=== PATIENT | female | born 1940 | race Caucasian/White ===

== ENCOUNTER → 2019-01-05 | Outpatient (CLI) | payer MEDICARE, SELFPAY | PROVIDERS: Family Provider Family Medicine; PCP Family Medicine; Referring Provider Family Medicine; Visit Provider Otolaryngology | DX: H92.09 Otalgia, unspecified ear (principal); H91.92 Unspecified hearing loss, left ear; J34.2 Deviated nasal septum; J34.3 Hypertrophy of nasal turbinates; H69.83 Other specified disorders of Eustachian tube, bilateral | CPT/HCPCS: 96372; 99213 ==

== ENCOUNTER → 2019-04-28 08:57 | Outpatient (BNVA) | payer MEDICARE, SELFPAY | PROVIDERS: Family Provider Family Medicine; PCP Family Medicine; Visit Provider Otolaryngology | DX: H69.83 Other specified disorders of Eustachian tube, bilateral (principal); H91.93 Unspecified hearing loss, bilateral; J06.9 Acute upper respiratory infection, unspecified; J34.2 Deviated nasal septum; J34.3 Hypertrophy of nasal turbinates | CPT/HCPCS: 96372; 99214; J3301 ==

== ENCOUNTER 2019-09-16 15:00 | Outpatient (CLI) | payer MEDICARE, SELFPAY ==
--- NOTE | 2019-09-16 15:12 | MR_ITS ---
WS: [id number] MRI LUMBAR SPINE NONCONTRAST TECHNIQUE: Sagittal T1, T2 and STIR imaging. Axial T1 and T2 imaging. CLINICAL INFORMATION: COMPARISON: None. FINDINGS: Mild lumbar curve. No acute compression. Slight anterolisthesis L4 on L5. L1-L2: Tiny right subarticular protrusion with impingement on the traversing right L2 nerve root. Mil d right and no significant left foraminal narrowing. Mild central canal stenosis. Mild facet arthropa thy. L2-L3: Mild disc bulging with osteophytic ridging. Impingement right subarticular recess. Mild right and no significant left foraminal narrowing. Moderate facet arthropathy. L3-L4: Mild disc bulging with left to right narrowing of the thecal sac. Moderate central canal steno sis. Advanced facet arthropathy. Mild right greater than left foraminal narrowing. L4-L5: Grade 1 anterolisthesis L4 on L5. Moderate to severe central canal stenosis with impingement o n the subarticular recess bilaterally. Advanced facet arthropathy. Mild right and no significant left foraminal narrowing. L5-S1: Left eccentric disc osteophyte complex. Mild left foraminal narrowing. Advanced facet arthropa thy. Spinal canal and foramen are patent. Visualized pelvic bony structures: Normal. Paravertebral soft tissues: Normal. MR/MR lumbar spine wo con* [id number] IMPRESSION: 1. Lumbar scoliosis convex left. 2. Grade 1 anterolisthesis L4 on L5. Moderate to severe central canal stenosis L3-L4 L4-L5 with impingement subarticular recess bilaterally. This is worse L4 -5. 3. Small right subarticular protrusion L1-2 impingement on the right subarticu lar recess and traversing right L2 nerve root. Mild right foraminal narrowing. 4. Slight impingement right subarticular recess L2-3 with mild right foraminal narrowing. 5. Advanced facet arthropathy L4-L5 and L5-S1.
== END 2019-09-16 15:01 | disposition home or self-care (01) ==
PROVIDERS: Family Provider Family Medicine; PCP Family Medicine; Visit Provider Family Medicine
DX: M54.17 Radiculopathy, lumbosacral region (principal); M48.061 Spinal stenosis, lumbar region without neurogenic claudication; M47.896 Other spondylosis, lumbar region
CPT/HCPCS: 72148

== ENCOUNTER 2019-12-14 13:48 | Outpatient (CLI) | payer MEDICARE, SELFPAY ==
--- NOTE | 2019-12-14 14:15 | USCV_ITS ---
Ayesha Arteaga Age: 79 Gender: F : 1940 Exam Date: 12/14/2019 14:09 Ordering Phys: Monique Madrid Technologist: Deisi Bunn Exam Location: [facility] [place] Indication: LT CAROTID BRUIT Risk Factors: Unknown Previous Vascular Surgery: None Right Brachial BP: / Left Brachial BP: / Right Left Velocity (cm/s) Spectral Plaque Velocity (cm/s) Spectral Plaque Syst/Diast Broadening Syst/Diast Broadening 83.80/ 26.50 Prox CCA 83.30 / 19.30 61.70/ 16.50 Mid CCA 44.70 / 10.80 25.65/ 27.95 Distal CCA 38.30 / 16.60 54.40/ 13.20 Hetro Prox ICA 39.60 / 11.50 27.20/ 11.70 Mid ICA 42.10 / 14.70 44.40/ 14.10 Distal ICA 61.80 / 19.00 58.30 Hetro ECA 47.20 0.88 ICA/CCA 1.38 Antegrade Vertebral Antegrade 44.60/ 11.70 cm/s 50.90/ 18.50 cm/s Tri Subclavian Tri 81.80 65.20 FINDINGS Minimal plaques at the bifurcations bilaterally. Intimal thickening in the common carotid arteries bilaterally. Antegrade flow in the vertebral arteries bilaterally. Normal Doppler flow velocities in the external carotid arteries bilaterally CONCLUSIONS Minimal plaques at the bifurcations bilaterally. Intimal thickening in the common carotid arteries bilaterally. No significant stenosis, based on the above findings. Dr Jd Martinez MD [facility] (Electronically Signed) Final Date: 15 December 2019 16:55 S
== END 2019-12-14 13:49 | disposition home or self-care (01) ==
LOC: US 13:50
PROVIDERS: PCP Family Medicine; Visit Provider Nurse Practitioner Family
DX: R09.89 Other specified symptoms and signs involving the circulatory and respiratory systems (principal)
CPT/HCPCS: 93880

== ENCOUNTER 2019-12-22 12:28 | Outpatient (CLI) | payer MEDICARE, SELFPAY ==
--- NOTE | 2019-12-22 12:43 | CT_ITS ---
WS: [id number] Exam: CT neck w con* [id number] Date/Time of Exam: 12/22/2019 1:00 PM Reason For Exam: MASS OF RIGHT SIDE OF NECK DLP: 2295.[address] scans at [facility] use at least one of these dose optimization techniques: automat ed exposure control; mA and/or kV adjustment per patient size (includes targeted exams where dose is matched to clinical indication); or iterative reconstruction. The neck is evaluated in the axial plane with sagittal and coronal reformatted images. Intravenous co ntrast was administered for the exam. There is no sign of neck mass or significant cervical lymphadenopathy. The airway is patent. The subm andibular glands and parotid glands are symmetrical side to side. No mass is noted in the region of t he tongue base. The bilateral common carotid arteries and extracranial internal carotid arteries are patent as visualized. Visualized upper lung zones are clear. Several tiny low attenuation densities i n the bilateral thyroid lobes. No destructive bone lesions. Degenerative changes in the cervical spin e. CT/CT neck w con* [id number] IMPRESSION: 1. No sign of neck mass or significant cervical lymphadenopathy. 2. Other minor findings as above.
[2019-12-22] MEDS: iohexol 300 mg/mL 100 mL Btl IV (13:22)
== END 2019-12-22 12:29 | disposition home or self-care (01) ==
LOC: RADWPI 12:32
PROVIDERS: PCP Family Medicine; Visit Provider Family Medicine
DX: R22.1 Localized swelling, mass and lump, neck (principal)
CPT/HCPCS: 70491; Q9967

== ENCOUNTER 2020-06-18 12:33 | Outpatient (CLI) | payer MEDICARE, SELFPAY ==
--- NOTE | 2020-06-18 12:52 | MR_ITS ---
WS: [id number] MRI LUMBAR SPINE NONCONTRAST HISTORY: LUMBAR SPINE Instability; sciatica COMPARISON: 09/16/2019 TECHNIQUE: Sagittal and axial multisequence imaging is submitted. Disc osteophyte encroachment causing mild cervical stenosis at C3-4 and C4-5. Mild increase in the th oracic kyphosis. Mild LEFT curvature lumbar spine with straightening of the normal lordosis. 4 mm retrolisthesis of L2 and L3. 7 mm anterolisthesis of L4. Conus terminates normally at L1. L1-L2: Moderate size RIGHT paracentral and subarticular recess disc protrusion similar to the prior s tudy with mild subarticular recess narrowing and foraminal narrowing on the RIGHT. L2-L3: Diffuse annular disc bulging and osteophytic ridging. Bilateral facet joint arthritis, RIGHT g reater than LEFT. Bone and disc impingement into the RIGHT subarticular recess and moderate RIGHT for aminal stenosis and mild on the LEFT. L3-L4: Diffuse asymmetric disc bulging and osteophytic ridging with marked ligamentum flavum disease and facet arthritis. There is moderate central stenosis. Encroachment into the LEFT lateral recess an d bilateral subarticular recesses and foramen. Moderate to severe bilateral foraminal stenosis. L4-L5: Diffuse osteophytic ridging with ligamentum flavum disease and facet arthritis. Moderate centr al, bilateral subarticular recess and foraminal stenosis. Foraminal stenosis slightly greater on the LEFT. L5-S1: Diffuse asymmetric disc bulging with facet and ligamentum flavum hypertrophy. Mild LEFT forami nal stenosis. MR/MR lumbar spine wo con* [id number] IMPRESSION: 1. LEFT curvature lumbar spine with multilevel areas of significant degenerati ve facet disease and disc disease. 2. Grade 1 anterolisthesis of L4. 3. Moderate central, bilateral subarticular recess and foraminal stenosis, LEF T greater than RIGHT at L4-5. 4. Moderate central stenosis with LEFT lateral recess, bilateral subarticular recess and foraminal stenosis at L3-4. Similar to the prior study with only mil d progression. 5. Moderate RIGHT foraminal stenosis at L2-3. 6. Mild RIGHT subarticular recess and foraminal narrowing at L1-2 due to disc protrusion, unchanged.
== END 2020-06-18 12:34 | disposition home or self-care (01) ==
LOC: RADSHAW 12:35
PROVIDERS: PCP Family Medicine; Visit Provider Family Medicine
DX: M53.2X6 Spinal instabilities, lumbar region (principal); M54.32 Sciatica, left side; M54.31 Sciatica, right side; M51.26 Other intervertebral disc displacement, lumbar region; M48.061 Spinal stenosis, lumbar region without neurogenic claudication; M51.36 Other intervertebral disc degeneration, lumbar region
CPT/HCPCS: 72148

== ENCOUNTER → 2021-01-14 13:41 | Outpatient (BNVA) | payer MEDICARE, SELFPAY | PROVIDERS: PCP Family Medicine; Visit Provider Obstetrics & Gynecology | DX: R10.2 Pelvic and perineal pain (principal); Z85.3 Personal history of malignant neoplasm of breast | CPT/HCPCS: 76830 ==

== ENCOUNTER 2021-02-11 10:11 | Outpatient (CLI) | payer MEDICARE, SELFPAY ==
--- NOTE | 2021-02-11 10:30 | MM_ITS ---
WS: [id number] BILATERAL DIGITAL DIAGNOSTIC MAMMOGRAM MAMMOGRAPHY WITH CAD CLINICAL INFORMATION: Z85.3 - Personal history of malignant neoplasm of breast COMPARISON: None available TECHNIQUE: Bilateral CC, MLO, and ML views. FINDINGS: Scattered fibroglandular densities bilaterally. Evidence of prior lumpectomy left mid breast with ass ociated surgical clips and calcifications. Associated parenchymal fibrosis at the lumpectomy site. Indeterminate clustered calcifications along the inferior and anterior margin of the lumpectomy site LEFT breast. Recommend spot compression magnification views of these calcifications. Numerous indeterminate clustered calcifications RIGHT breast. Recommend spot compression magnificatio n views of these calcifications. MM/[place] [id number] IMPRESSION: BI-RADS: 0-Incomplete: Need additional imaging evaluation FOLLOW UP: Need Additional Imaging RECOMMEND SPOT COMPRESSION MAGNIFICATION VIEWS BILATERAL BREAST OF THE NUMEROUS CLUSTERED CALCIFICATIONS
== END 2021-02-11 10:12 | disposition home or self-care (01) ==
LOC: RADSHAW 10:16
PROVIDERS: PCP Family Medicine; Visit Provider Obstetrics & Gynecology
DX: Z85.3 Personal history of malignant neoplasm of breast (principal)
CPT/HCPCS: 77066

== ENCOUNTER → 2021-02-13 09:13 | Outpatient (BNVA) | payer MEDICARE, SELFPAY | PROVIDERS: PCP Family Medicine; Visit Provider Urology | DX: N32.9 Bladder disorder, unspecified (principal); N30.20 Other chronic cystitis without hematuria; R33.9 Retention of urine, unspecified | CPT/HCPCS: 81003; 87077; 87086; 87184 ==

== ENCOUNTER 2021-03-12 08:40 | Outpatient (CLI) | payer MEDICARE, SELFPAY ==
--- NOTE | 2021-03-12 09:00 | MM_ITS ---
WS: [id number] BILATERAL DIGITAL DIAGNOSTIC MAMMOGRAM MAMMOGRAPHY WITH CAD CLINICAL INFORMATION: R92.8 - Other abnormal and inconclusive findings on diagn... COMPARISON: February 11, 2021 TECHNIQUE: Bilateral CC, MLO, and ML views. FINDINGS: Scattered fibroglandular densities bilaterally. Prior postoperative changes lumpectomy left mid breas t. Associated surgical clips and calcifications. Associated parenchymal fibrosis at the lumpectomy si te. LEFT: Clustered punctate calcifications about the lumpectomy site. Without the benefit of prior comparison studies these are technically indeterminant and recommend further evaluation with stereotactic guided biopsy. Additional coarse benign-appearing dystrophic calcifications within the lumpectomy defect centrally. RIGHT: Numerous clusters of amorphous calcifications within the right breast. These are probably benign and recommend 6 month follow-up to confirm stability considering no comparisons. MM/[place] [id number] IMPRESSION: Indeterminate clustered punctate calcifications LEFT breast about t he lumpectomy site. Recommend further evaluation with stereotactic biopsy. BI-RADS: 4-Suspicious Finding-Biopsy Should Be Considered FOLLOW UP: Stereotactic Biopsy Recommended In addition, recommend 6 month follow-up RIGHT breast calcifications with diagn ostic mammography and spot magnification views.
== END 2021-03-12 08:41 | disposition home or self-care (01) ==
LOC: RADSHAW 08:45
PROVIDERS: PCP Family Medicine; Visit Provider Obstetrics & Gynecology
DX: R92.8 Other abnormal and inconclusive findings on diagnostic imaging of breast (principal); R92.1 Mammographic calcification found on diagnostic imaging of breast
CPT/HCPCS: 77066

== ENCOUNTER → 2021-04-26 12:53 | Outpatient (BNVA) | payer MEDICARE, SELFPAY | PROVIDERS: PCP Family Medicine; Visit Provider Urology | DX: N30.80 Other cystitis without hematuria (principal) | CPT/HCPCS: 81003; 87077; 87086; 87184 ==

== ENCOUNTER → 2021-05-24 15:01 | Outpatient (BNVA) | payer MEDICARE, SELFPAY | PROVIDERS: PCP Family Medicine; Visit Provider Urology | DX: N30.80 Other cystitis without hematuria (principal); N39.41 Urge incontinence; R35.89 Other polyuria | CPT/HCPCS: 81003 ==

== ENCOUNTER → 2021-08-29 09:52 | Outpatient (BNVA) | payer MEDICARE, SELFPAY | PROVIDERS: PCP Family Medicine; Visit Provider Urology | DX: N30.80 Other cystitis without hematuria (principal) | CPT/HCPCS: 81003; 87077; 87086; 87186; 99213 ==

== ENCOUNTER → 2021-10-17 08:38 | Outpatient (BNVA) | payer MEDICARE, SELFPAY | PROVIDERS: PCP Family Medicine; Visit Provider Urology | DX: R35.89 Other polyuria (principal); N39.41 Urge incontinence; N30.80 Other cystitis without hematuria | CPT/HCPCS: 51798; 81003; 99213 ==

== ENCOUNTER → 2021-12-03 14:28 | Outpatient (BNVA) | payer MEDICARE, SELFPAY | PROVIDERS: PCP Family Medicine; Visit Provider Student in an Organized Health Care Education/Training Program | DX: M17.12 Unilateral primary osteoarthritis, left knee (principal); M71.22 Synovial cyst of popliteal space [Baker], left knee | CPT/HCPCS: 20610; 73560; 73565; 99204; J3301 ==

== ENCOUNTER → 2021-12-09 13:35 | Outpatient (BNVA) | payer MEDICARE, SELFPAY | PROVIDERS: PCP Family Medicine; Visit Provider Internal Medicine Cardiovascular Disease | DX: I47.1 Supraventricular tachycardia (principal); I10 Essential (primary) hypertension | CPT/HCPCS: 93005; 99214 ==

== ENCOUNTER → 2021-12-13 10:21 | Outpatient (BNVA) | payer MEDICARE, SELFPAY | PROVIDERS: PCP Family Medicine; Visit Provider Urology | DX: N39.41 Urge incontinence (principal); N30.80 Other cystitis without hematuria | CPT/HCPCS: 81003; 99213 ==

== ENCOUNTER → 2022-01-07 10:51 | Outpatient (BNVA) | payer MEDICARE, SELFPAY | PROVIDERS: PCP Family Medicine; Visit Provider Student in an Organized Health Care Education/Training Program | DX: M17.12 Unilateral primary osteoarthritis, left knee (principal) | CPT/HCPCS: 99213 ==

== ENCOUNTER → 2022-01-24 06:55 | Outpatient (BNVA) | payer MEDICARE, SELFPAY | PROVIDERS: PCP Family Medicine; Visit Provider Student in an Organized Health Care Education/Training Program | DX: M17.12 Unilateral primary osteoarthritis, left knee (principal) | CPT/HCPCS: 99214 ==

== ENCOUNTER → 2022-02-11 08:51 | Outpatient (BNVA) | payer MEDICARE, SELFPAY | PROVIDERS: PCP Family Medicine; Visit Provider Student in an Organized Health Care Education/Training Program | DX: M17.12 Unilateral primary osteoarthritis, left knee (principal) | CPT/HCPCS: 99214 ==

== ENCOUNTER → 2022-03-20 08:04 | Outpatient (BNVA) | payer MEDICARE, SELFPAY | PROVIDERS: PCP Family Medicine; Visit Provider Student in an Organized Health Care Education/Training Program | DX: M17.12 Unilateral primary osteoarthritis, left knee (principal) | CPT/HCPCS: 99213 ==

== ENCOUNTER → 2022-04-17 10:22 | Outpatient (BNVA) | payer MEDICARE, SELFPAY | PROVIDERS: PCP Family Medicine; Visit Provider Urology | DX: N30.80 Other cystitis without hematuria (principal) | CPT/HCPCS: 81003; 99213 ==

== ENCOUNTER → 2022-06-17 13:54 | Outpatient (BNVA) | payer MEDICARE, SELFPAY | PROVIDERS: PCP Family Medicine; Visit Provider Internal Medicine Cardiovascular Disease | DX: I47.1 Supraventricular tachycardia (principal); I10 Essential (primary) hypertension | CPT/HCPCS: 99213 ==

== ENCOUNTER → 2022-07-31 12:47 | Outpatient (BNVA) | payer MEDICARE, SELFPAY | PROVIDERS: PCP Family Medicine; Visit Provider Family Medicine | DX: N30.80 Other cystitis without hematuria (principal); I47.1 Supraventricular tachycardia; R53.83 Other fatigue; I10 Essential (primary) hypertension; N39.41 Urge incontinence; Z76.89 Persons encountering health services in other specified circumstances; Z79.899 Other long term (current) drug therapy | CPT/HCPCS: 80053; 82306; 82607; 83735; 84443; 85025 ==

== ENCOUNTER → 2022-08-12 09:39 | Outpatient (BNVA) | payer MEDICARE, SELFPAY | PROVIDERS: PCP Family Medicine; Visit Provider Urology | DX: N30.80 Other cystitis without hematuria (principal); R33.9 Retention of urine, unspecified | CPT/HCPCS: 81003; 87077; 87086; 87186; 99213 ==

== ENCOUNTER 2022-08-13 10:23 | Outpatient (CLI) | payer MEDICARE, SELFPAY ==
--- NOTE | 2022-08-13 10:36 | MM_ITS ---
WS: [id number] DIAGNOSTIC BILATERAL DIGITAL BREAST TOMOSYNTHESIS MAMMOGRAPHY WITH CAD HISTORY: ANNUAL - HX BR CA COMPARISON: 03/12/2021, 02/11/2021 and 02/08/2020 TECHNIQUE: Bilateral craniocaudad, mediolateral oblique, and mediolateral views are submitted with to mosynthesis and SM. Computer aided detection utilized. Breast composition: There are scattered areas of fibroglandular density. Status post lumpectomy site middle LEFT breast at 12:00. Increasing dystrophic calcifications at the surgical site. No new or destiny picious calcifications. Stable calcifications in the RIGHT breast. MM/[place] [id number] IMPRESSION: BI-RADS: 2-Benign FOLLOW UP: 1 Year Follow-up
== END 2022-08-13 10:24 | disposition home or self-care (01) ==
PROVIDERS: PCP Family Medicine; Visit Provider Family Medicine
DX: Z12.39 Encounter for other screening for malignant neoplasm of breast (principal); Z85.3 Personal history of malignant neoplasm of breast
CPT/HCPCS: 77062; 80053; 82306; 82607; 83735; 84443; 85025; G0279

== ENCOUNTER → 2022-10-31 12:56 | Outpatient (BNVA) | payer MEDICARE, SELFPAY | PROVIDERS: PCP Family Medicine; Visit Provider Family Medicine | DX: R30.0 Dysuria (principal); N30.80 Other cystitis without hematuria; R29.898 Other symptoms and signs involving the musculoskeletal system | CPT/HCPCS: 81000 ==

== ENCOUNTER → 2023-03-12 12:23 | Outpatient (BNVA) | payer MEDICARE, SELFPAY | PROVIDERS: PCP Family Medicine; Visit Provider Family Medicine | DX: R10.31 Right lower quadrant pain (principal); M70.61 Trochanteric bursitis, right hip | CPT/HCPCS: 80053; 85025 ==

== ENCOUNTER 2023-04-15 06:47 | Outpatient (CLI) | payer MEDICARE, SELFPAY ==
--- NOTE | 2023-04-15 08:00 | CT_ITS ---
WS: [id number] CT ABDOMEN PELVIS TECHNIQUE: Contrast-enhanced CT of the abdomen and pelvis with coronal and sagittal reformatted image s. CLINICAL INFORMATION: rlq pain COMPARISON: CT 2019 DLP: 470.[address] scans at [facility] use at least one of these dose optimization techniques: automated e xposure control; mA and/or kV adjustment per patient size (includes targeted exams where dose is matc hed to clinical indication); or iterative reconstruction. FINDINGS: Diffuse fatty infiltration of the liver. Multiple hepatic cysts some of which have increased in size compared to 2019. Largest hepatic cysts in the LEFT hepatic lobe measuring 3.1 cm and RIGHT hepatic l obe measuring 3.1 cm. Normal portal vein and splenic vein. Splenic granulomas. Normal GE junction. Bi basilar atelectasis. Normal caliber abdominal aorta. Celiac and SMA are patent. Adrenal glands are no rmal. No hydronephrosis in either kidney. Small LEFT renal cyst. Normal pancreatic parenchymal enhancement. Small fat-containing umbilical hernia. Thoracolumbar scoli osis. Grade 1 anterolisthesis L4 and L5 unchanged. Normal appendix in the RIGHT lower quadrant. Mild transverse colon and RIGHT colon constipation. IMPRESSION: 1. Simple bilateral hepatic cysts some of which have increased in size compared to 2019. 2. Small LEFT renal cyst measuring 1.0 cm. No hydronephrosis in either kidney. 3. Bibasilar atelectasis. 4. Normal appendix in the RIGHT lower quadrant. 5. Stable grade 1 anterolisthesis L4 on L5. 6. No other acute findings.
[2023-04-15] MEDS: iohexol 350 mg/mL 500 mL Btl (per mL) PO (08:25)
[2023-04-15] MEDS: iohexol 350 mg/mL 100 mL Btl IV (08:25)
== END 2023-04-15 06:48 | disposition home or self-care (01) ==
LOC: RAD 06:48
PROVIDERS: PCP Family Medicine; Visit Provider Family Medicine
DX: R10.31 Right lower quadrant pain (principal); K76.89 Other specified diseases of liver; N28.1 Cyst of kidney, acquired
CPT/HCPCS: 74177; Q9967

== ENCOUNTER → 2023-06-16 14:06 | Outpatient (BNVA) | payer MEDICARE, SELFPAY | PROVIDERS: PCP Family Medicine; Visit Provider Internal Medicine Cardiovascular Disease | DX: I47.10 Supraventricular tachycardia, unspecified (principal); I10 Essential (primary) hypertension; F41.9 Anxiety disorder, unspecified | CPT/HCPCS: 99213 ==

== ENCOUNTER 2023-08-19 09:22 | Outpatient (CLI) | payer MEDICARE, SELFPAY ==
--- NOTE | 2023-08-19 10:00 | MM_ITS ---
WS: [id number] DIAGNOSTIC BILATERAL DIGITAL BREAST TOMOSYNTHESIS MAMMOGRAPHY WITH CAD HISTORY: Hx of Breast Cancer COMPARISON: 08/13/2022, 02/11/2021 and 02/08/2020 TECHNIQUE: Bilateral craniocaudad, mediolateral oblique, and mediolateral views are submitted with to mosynthesis and SM. Computer aided detection utilized. Breast composition: The breasts are heterogeneously dense, which may obscure small masses. Status pos t lumpectomy with scarring central superior LEFT breast. Dystrophic calcification developing associat ed with the lumpectomy clips. There is mild but stable architectural distortion. Bilateral benign abi ast calcifications. No new mass. MM/[place] [id number] IMPRESSION: BI-RADS: 2-Benign FOLLOW UP: 1 Year Follow-up
== END 2023-08-19 09:23 | disposition home or self-care (01) ==
LOC: RAD 09:23
PROVIDERS: PCP Family Medicine; Visit Provider Family Medicine
DX: Z85.3 Personal history of malignant neoplasm of breast (principal)
CPT/HCPCS: 77062; G0279

== ENCOUNTER → 2023-12-15 14:41 | Outpatient (BNVA) | payer MEDICARE, SELFPAY | PROVIDERS: PCP Family Medicine; Visit Provider Family Medicine | DX: I10 Essential (primary) hypertension (principal); R53.83 Other fatigue; N30.80 Other cystitis without hematuria | CPT/HCPCS: 80053; 81000; 82306; 82607; 83735; 84443; 85025; 87086 ==

== ENCOUNTER 2023-12-27 09:08 | Emergency (ER) | payer MEDICARE, SELFPAY ==
[2023-12-27 09:30] VITALS: BP 175/91; PULSE 59; O2SAT 97; BMI 25.0
--- NOTE | 2023-12-27 09:33 | CTR_ITS ---
PROCEDURE INFORMATION: Exam: CT Lumbar Spine Without Contrast Exam date and time: 12/27/2023 11:01 AM Age: 83 years old Clinical indication: Low back pain TECHNIQUE: Imaging protocol: Computed tomography of the lumbar spine without contrast. Radiation optimization: All CT scans at this facility use at least one of these dose optimization techniques: automated exposure control; mA and/or kV adjustment per patient size (includes targeted exams where dose is matched to clinical indication); or iterative reconstruction. COMPARISON: MR lumbar spine wo con* [id number] 06/18/2020 1:07 PM RADIATION DOSE METRICS: Total DLP (mGy-cm): 617.63 FINDINGS: Bones/joints: Demineralization of the visualized bones. Curvature of the lumbar spine convex to the left. Mild degenerative disease of bilateral sacroiliac joints. Bilateral L4-L5 facet joint arthropathy with mild anterolisthesis of L4 over L5. Bilateral L3-L4 facet joint arthropathy with mild retrolisthesis L3 over L4. No compression deformity. No acute fracture. L1-L2: Posterior osteophyte disc complex with bilateral facet joint arthropathy causing mild bony canal stenosis and moderate narrowing of the right neural foramen. L2-L3: Posterior osteophyte disc complexes bilateral facet joint arthropathy causing mild bony canal stenosis and moderate narrowing of the right neural foramen. L3-L4: Posterior osteophyte disc complex with bilateral facet joint arthropathy and ligamentum flavum hypertrophy causing severe bony canal stenosis and severe narrowing of bilateral neural foramina. L4-L5: Posterior osteophyte disc complex with bilateral facet joint arthropathy and ligamentum flavum hypertrophy causing severe thecal sac compression and moderate narrowing of bilateral neural foramina. L5-S1: Bilateral facet joint arthropathy. No significant thecal sac compression or neural foraminal narrowing. Liver: Calcified granulomas in the liver. Spleen: Calcified granulomas in the spleen. Vasculature: Vascular calcifications. Soft tissues: Unremarkable. CT/CT lumbar spine wo con* [id number] IMPRESSION: Multilevel degenerative disease of the lumbar spine, most pronounced at L4-L5 with severe thecal sac compression.
[2023-12-27] MEDS: ondansetron 2 mg/ML SDV 2 mL 4 MG IVP (09:50)
[2023-12-27 09:51] LABS: Basophils % 0.4 %; Eosinophils % 0.2 %; Hematocrit 43.3 % (36-47); Lymphocytes # 1.5 10^3/uL (0.8-4.8); Lymphocytes % 16.6 %; Mean Corpuscular HGB Conc 32.8 g/dL (30-55); Mean Corpuscular Hemoglobin 29.6 pg (27-33); Mean Corpuscular Volume 90.4 fl (85-98); Mean Platelet Volume 9.4 fL (7.4-10.4); Monocytes # 0.7 10^3/uL (0.2-0.9); Monocytes % 7.8 %; Neutrophils # 6.72 10^3/uL (1.8-7.7); Neutrophils % 74.7 %; Nucleated Red Blood Cells % 0 %; Platelet Count 347 10^3/cmm (157-399); Red Blood Count 4.79 10^6/uL (3.85-5.65); Red Cell Distribution Width 12.7 % (12.1-15.1)
[2023-12-27 09:53] VITALS: RESP 16
[2023-12-27] MEDS: morphine 4 mg/mL SDV 1 mL IVP (09:53)
[2023-12-27] MEDS: dexamethasone 10 mg/mL INJ IVP (09:55)
[2023-12-27] MEDS: methocarbamol 750 mg Tablet 1500 MG PO (09:57)
--- NOTE | 2023-12-27 10:11 | W.ED.BACK ---
HPI - Back Pain/Injury General: Chief Complaint: Back Pain/Injury Stated Complaint: sever pain left side of back Time Seen by Provider: 12/27/23 09:19 Source: patient Mode of arrival: ambulatory Limitations: no limitations History of Present Illness: 83-year-old female states she has been having increasing back pain over the last month states it is left lower back she has had some radiation down her left leg states she seen her PCP for this has been on steroids has had no improvement she denies any bowel or bladder incontinence denies any saddle anesthesia states her pain currently is a 4 out of 10. Associated symptoms: Deny abdominal pain, chills, fever(s), nausea or vomiting Related Data Home Medications Medication Instructions Recorded Confirmed polyethylene glycol 3350 17 17 gm PO DAILY PRN Constipation 10/12/19 12/27/23 gram/dose oral powder (Miralax) acetaminophen 500 mg tablet 500 mg PO Q6H PRN Pain 12/27/23 12/27/23 amlodipine 2.5 mg tablet 2.5 mg PO DAILY 12/27/23 12/27/23 metoprolol tartrate 25 mg tablet 25 mg PO BID 12/27/23 12/27/23 Previous Rx's Medication Instructions Recorded celecoxib 50 mg capsule (Celebrex) 50 mg PO BID #60 caps 12/15/23 methylprednisolone 4 mg tablets in See Rx Instructions PO PER PKG DIR 12/22/23 a dose pack (Medrol (Stephon)) #21 ea hydrocodone 5 mg-acetaminophen 325 1 tab PO Q6H PRN pain #14 tabs 12/27/23 mg tablet methocarbamol 750 mg tablet 750 mg PO Q6H PRN spasms #20 tabs 12/27/23 Allergies Allergy/AdvReac Type Severity Reaction Status Date / Time simvastatin AdvReac Unknown muscle Verified 12/22/23 14:18 aches tamoxifen AdvReac Unknown superficial Verified 12/22/23 14:18 clot in legs Review of Systems Const: Denies: fever(s), chills, body aches or change in appetite ENMT: Denies: throat pain or dental pain Card: Denies: chest pain Resp: Denies: dyspnea GI: Denies: abdominal pain, nausea, vomiting or diarrhea Musc: Reports: back pain; Denies: neck pain Skin/Breast: Denies: rash Neuro: Denies: headache(s) PFSH ED PFSH: Medical History 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 She also underwent radiation but no chemotherapy secondary to complications. She follows up with her oncologist in [place] who cleared her in 2019 to return to routine care. Essential hypertension SVT (supraventricular tachycardia) Surgical History History of lumpectomy of left breast History of bunionectomy of left great toe H/O: hysterectomy 02/09/2017--->patient underwent a vaginal hysterectomy, sacro-spinous ligament fixation, anterior and posterior repair, perineorrhaphy, right salpingectomy. Surgery was performed by Dr. Mahmood in [facility] in [place]. --He notes that there was a 6 cm tubal cyst on the right side and that is why the right tube was removed. The ovaries and left tube were within normal limits but could not be reached and were not removed. -Operative reports have been received and scanned into all scripts S/P dilatation and curettage 6 weeks after the of her first child for abnormal bleeding S/P hammer toe correction 2002-left foot S/P cataract surgery 2019-bilateral Family History Father , at age 67 CAD (coronary artery disease) Hyperlipidemia Sister Thyroid disease Uterine cancer diagnosed at age 74 Breast cancer diagnosed at age 67 Stroke Family/Other Breast cancer Niece, diagnosed at age 40 Brother Hyperlipidemia Mother , at 76 Breast cancer diagnosed at age 63 Cancer Other H/O breast surgery History of breast cancer Denies family history of Colon cancer Ovarian cancer Diabetes Clotting disorder Dementia Chronic kidney disease (CKD) Suicide Anesthesia complication Bleeding disorder Lung disease Hypertension Social History Smoking and tobacco/nicotine status: never used tobacco/nicotine Alcohol intake: never Substance/Drug Use: never Caregiver/support person: Yes Household members: spouse Marital status: Number of children: 3 Current occupational status: retired Special janneth needs: No Agree to transfusion: Yes Physical Exam Const: COMMON NORMALS: no acute distress, patient oriented x3 and healthy appearing HENMT: COMMON NORMALS: normocephalic and atraumatic HEAD & SCALP: normocephalic and atraumatic Eye: COMMON NORMALS: conjunctivae normal CONJUNCTIVA: Yes conjunctivae normal Neck/C-Spine: COMMON NORMALS: full ROM and supple Chest: COMMONS NORMALS: normal inspection of the chest Resp: COMMON NORMALS: normal respiratory effort Cardio: COMMON NORMALS: regular rate, regular rhythm and No murmurs present (Cardio) RATE: regular rate RHYTHM: regular rhythm Back/Pelvis: OTHER: Left lower lumbar tenderness no midline tenderness no saddle anesthesia Extremity: COMMON NORMALS: normal to inspection and full ROM Neuro: COMMON NORMALS: patient oriented x3, moves all extremities and no focal motor deficits Psych: COMMON NORMALS: mental status grossly normal, Normal thought process present and cooperative THOUGHT PROCESS: Normal thought process present Skin: COMMON NORMALS: no rashes or lesions noted and no wounds GENERAL SKIN EXAM: no rashes or lesions noted Course Vital Signs: Vital signs: Vital Signs Pulse Rate 59 L 12/27/23 09:30 Respiratory Rate 16 12/27/23 09:53 Blood Pressure 175/91 12/27/23 09:30 Pulse Oximetry 97 12/27/23 09:30 MDM - Back Pain/Injury Medical Decision Making Patient presents here with back pain and she has no signs of cord compression or epidural abscess her pain is improved here we will place her on pain meds we will get her follow-up with Dr. Carroll she is return if worsening. Medical Records I reviewed the patient's medical records. Labs I reviewed the patient's lab results. 12/27/23 09:44 12/27/23 09:44 Radiology Impressions Lumbar Spine CT 12/27/23 09:33 IMPRESSION: Multilevel degenerative disease of the lumbar spine, most pronounced at L4-L5 with severe thecal sac compression. Laboratory Results WBC 9.00 10^3/uL (3.29-11.43) 12/27/23 09:44 RBC 4.79 10^6/uL (3.85-5.65) 12/27/23 09:44 Hgb 14.20 g/dL (11.27-16.99) 12/27/23 09:44 Hct 43.3 % (36-47) 12/27/23 09:44 MCV 90.4 fl (85-98) 12/27/23 09:44 MCH 29.6 pg (27-33) 12/27/23 09:44 MCHC 32.8 g/dL (30-55) 12/27/23 09:44 RDW 12.7 % (12.1-15.1) 12/27/23 09:44 Plt Count 347 10^3/cmm (157-399) 12/27/23 09:44 MPV 9.4 fL (7.4-10.4) 12/27/23 09:44 Neut % (Auto) 74.7 % 12/27/23 09:44 Lymph % (Auto) 16.6 % 12/27/23 09:44 Cobb % (Auto) 7.8 % 12/27/23 09:44 Eos % (Auto) 0.2 % 12/27/23 09:44 Baso % (Auto) 0.4 % 12/27/23 09:44 Neut # (Auto) 6.72 10^3/uL (1.8-7.7) 12/27/23 09:44 Lymph # (Auto) 1.5 10^3/uL (0.8-4.8) 12/27/23 09:44 Cobb # (Auto) 0.7 10^3/uL (0.2-0.9) 12/27/23 09:44 Eos # (Auto) 0.0 10^3/uL (0.0-0.8) 12/27/23 09:44 Baso # (Auto) 0.0 10^3/uL (0.0-0.1) 12/27/23 09:44 Nucleated RBC % (auto) 0 % 12/27/23 09:44 Nucleated RBCs # 0.0 /100WBC 12/27/23 09:44 Sodium 137 mmol/L (136-145) 12/27/23 09:44 Potassium 4.3 mmol/L (3.5-5.1) 12/27/23 09:44 Chloride 100 mmol/L (98-107) 12/27/23 09:44 Carbon Dioxide 24 mmol/L (22-29) 12/27/23 09:44 Anion Gap 17.3 (5-19) 12/27/23 09:44 BUN 17 mg/dL (8-23) 12/27/23 09:44 Creatinine 0.8 mg/dL (0.5-0.9) 12/27/23 09:44 GFR Calculation Not Reportable 12/27/23 09:44 Glucose 100 mg/dL (65-115) 12/27/23 09:44 Calculated Osmolality 286 mOsm/kg (285-295) 12/27/23 09:44 Calcium 8.7 mg/dL (8.5-10.5) 12/27/23 09:44 Total Bilirubin 0.6 mg/dL (0.15-1.2) 12/27/23 09:44 AST 25 U/L (0-32) 12/27/23 09:44 ALT 23 U/L (0-33) 12/27/23 09:44 Alkaline Phosphatase 65 U/L (35-105) 12/27/23 09:44 Total Protein 6.9 g/dL (6.6-8.7) 12/27/23 09:44 Albumin 4.3 g/dL (3.5-5.2) 12/27/23 09:44 Globulin 2.6 g/dL (1.3-4.6) 12/27/23 09:44 Urine Color Yellow (Yellow) 12/27/23 10:45 Urine Appearance Clear (CLEAR) 12/27/23 10:45 Urine pH 7.0 (5-7) 12/27/23 10:45 Ur Specific [place] 1.005 (1.005-1.030) 12/27/23 10:45 Urine Protein Negative (Negative) 12/27/23 10:45 Urine Glucose (UA) Negative (Normal) 12/27/23 10:45 Urine Ketones Negative (Negative) 12/27/23 10:45 Urine Blood Negative (Negative) 12/27/23 10:45 Urine Nitrate Negative (Negative) 12/27/23 10:45 Urine Bilirubin Negative (Negative) 12/27/23 10:45 Urine Urobilinogen 0.2 mg/dL (Negative) 12/27/23 10:45 Ur Leukocyte Esterase Negative (Negative) 12/27/23 10:45 Urine RBC 0-2 /hpf (0-2) 12/27/23 10:45 Urine WBC 0-5 /hpf (0-5) 12/27/23 10:45 Ur Squamous Epith Cells 0-5 /hpf (0-5) 12/27/23 10:45 Amorphous Sediment Not Reportable 12/27/23 10:45 Urine Bacteria None seen /hpf (NONE) 12/27/23 10:45 Hyaline Casts 0-4 /lpf H 12/27/23 10:45 All radiology interpretation(s) finalized by discharge Discharge Plan Discharge Patient Disposition: Home Clinical Impression: Back pain Condition: Stable Prescriptions: New hydrocodone-acetaminophen 5-325 mg tablet 1 tab PO Q6H PRN (Reason: pain) Qty: 14 0RF methocarbamol 750 mg tablet 750 mg PO Q6H PRN (Reason: spasms) Qty: 20 0RF No Action polyethylene glycol 3350 [Miralax] 17 gram/dose powder 17 gm PO DAILY PRN (Reason: Constipation) celecoxib [Celebrex] 50 mg capsule 50 mg PO BID Qty: 60 0RF methylprednisolone [Medrol (Stephon)] 4 mg tablets,dose pack See Rx Instructions PO PER PKG DIR Qty: 21 0RF Rx Instructions: Take PER PKG DIR for 6 days acetaminophen 500 mg Tablet 500 mg PO Q6H PRN (Reason: Pain) amlodipine 2.5 mg tablet 2.5 mg PO DAILY metoprolol tartrate 25 mg tablet 25 mg PO BID Discharge Orders: Discharge ED (Routine); Ordered 12/27/23 Ordered By: Amy Liz Referrals: Elkin Carroll DO [Physician] - 4-7 days Danay Martin MD [Primary Care Provider] - 4-7 days Discharge Diet: Advance as tolerated Discharge Activity: Resume usual activity Patient Instructions: Back Pain (ED), Opioid Safety Coding Level of Care Code ED Patternmaker Plaster for Chg April
[2023-12-27 10:12] LABS: Alanine Aminotransferase 23 U/L (0-33); Albumin Level 4.3 g/dL (3.5-5.2); Alkaline Phosphatase 65 U/L (35-105); Blood Urea Nitrogen 17 mg/dL (8-23); Calcium 8.7 mg/dL (8.5-10.5); Carbon Dioxide 24 mmol/L (22-29); Chloride 100 mmol/L (98-107); Creatinine Clr Calc Pharmacy 57.4548; Globulin 2.6 g/dL (1.3-4.6); Glucose 100 mg/dL (65-115); Osmolality Calculated 286 mOsm/kg (285-295); Sodium 137 mmol/L (136-145); Total Bilirubin 0.6 mg/dL (0.15-1.2); Total Protein 6.9 g/dL (6.6-8.7)
[2023-12-27 10:18] LABS: Anion Gap 17.3 (5-19); Aspartate Amino Transferase 25 U/L (0-32); Potassium 4.3 mmol/L (3.5-5.1)
[2023-12-27 10:53] LABS: Bilirubin Urine Negative (Negative); Blood Urine Negative (Negative); Glucose Urine UA Negative (Normal); Ketones Urine Negative (Negative); Leukocyte Esterase Urine Negative (Negative); Nitrate Urine Negative (Negative); Protein Urine Negative (Negative); Specific Gravity, Urine 1.005 (1.005-1.030); Urine Appearance Clear (CLEAR); Urine Color Yellow (Yellow); Urobilinogen Urine 0.2 mg/dL (Negative)
[2023-12-27 10:58] LABS: Add Urine Microscopic? YES; Bacteria Urine None Seen /hpf; Hyaline Casts Urine 0-4 /lpf; RBC Urine 0-2 /hpf (0-2); Squamous Epithelial Cell Urine 0-5 /hpf (0-5); WBC Urine 0-5 /hpf (0-5)
[2023-12-27 11:32] VITALS: BP 161/78; PULSE 62; O2SAT 97
--- NOTE | 2023-12-28 08:54 | DCPLANNER ---
messaged ortho for er f/u
== END 2023-12-27 11:33 | disposition home or self-care (01) ==
PROVIDERS: Emergency Provider Emergency Medicine; PCP Family Medicine
DX: M54.9 Dorsalgia, unspecified (principal); I10 Essential (primary) hypertension; Z85.3 Personal history of malignant neoplasm of breast
CPT/HCPCS: 72131; 80053; 81001; 85025; 96374; 96375; 99285; J1100; J2270; J2405

== ENCOUNTER → 2023-12-31 12:49 | Outpatient (BNVA) | payer MEDICARE, SELFPAY | PROVIDERS: PCP Family Medicine; Visit Provider Orthopaedic Surgery | DX: M54.9 Dorsalgia, unspecified (principal); M48.062 Spinal stenosis, lumbar region with neurogenic claudication | CPT/HCPCS: 72110; 99204 ==

== ENCOUNTER 2024-01-15 09:05 | Outpatient (CLI) | payer MEDICARE, SELFPAY ==
--- NOTE | 2024-01-15 09:30 | MR_ITS ---
WS: [id number] MRI LUMBAR SPINE NONCONTRAST HISTORY: lumbar pain COMPARISON: 06/18/2020 TECHNIQUE: Sagittal and axial multisequence imaging is submitted. Mild cervical spine disease. LEFT curvature of the lumbar spine. Mild retrolisthesis of L1, L2 and L3. Most significant retrolisth esis of L3 by 4 mm. L4 anterolisthesis by 4 mm. Disc spaces are all narrowed and desiccated. Osteophytic ridging around the vertebral bodies. Similar to the prior study. No acute marrow edema or fracture. Conus terminates normally at L1-2 disc level. T12-L1: Mild osteophytic ridging. No stenosis. L1-L2: L1 retrolisthesis encroaching upon the ventral thecal sac. Additional annular disc bulging, gr eatest to the RIGHT. RIGHT subarticular recess disc protrusion and osteophyte with contact on the tra versing RIGHT L2 nerve root. Moderate ligamentum flavum and facet arthropathy. Similar findings on th e prior study with mild bilateral subarticular recess and foraminal stenosis, greatest on the RIGHT. L2-L3: Retrolisthesis of L2 with annular disc bulging and osteophytic ridging. Marked facet joint art hritis, greatest on the RIGHT. Moderate to severe RIGHT foraminal stenosis due to disc and osteophyte and facet disease. Mild LEFT foraminal stenosis. L3-L4: Diffuse annular disc bulging with ligamentum flavum and facet arthritis. Progression of centra l stenosis since the prior study. Severe central with bilateral subarticular recess stenosis. Severe RIGHT foraminal stenosis and mild LEFT foraminal stenosis. There is a focal disc protrusion in the RI GHT foramen. L4-L5: Mild annular disc bulging encroaching upon the ventral thecal sac with ligamentum flavum hyper trophy. Severe central with bilateral subarticular recess encroachment upon the traversing L5 nerve r oots. Moderate bilateral foraminal stenosis. L5-S1: Mild annular disc bulging with facet and ligamentum flavum hypertrophy. LEFT foraminal disc pr otrusion contacts the exiting LEFT L5 nerve root. This appears more pronounced than on the prior stud y. Hepatic and LEFT renal cysts. MR/MR lumbar spine wo con* [id number] IMPRESSION: 1. Advanced degenerative rotary scoliosis lumbar spine. 2. Central, subarticular and foraminal stenoses as described above with mild p rogression since 2020. 3. L2-3: Moderate to severe RIGHT foraminal stenosis and mild LEFT foraminal s tenosis. Marked facet arthritis. 4. L3-4: Severe central with bilateral subarticular recess and foraminal steno sis. Severe RIGHT foraminal stenosis with a focal disc protrusion present. 5. L4-5: Severe central with bilateral subarticular recess encroachment upon t he traversing L5 nerve roots and moderate bilateral foraminal stenosis. 6. L5-S1: LEFT foraminal disc protrusion contacting the exiting LEFT L5 nerve root is new. 7. L1-2: RIGHT subarticular recess disc and osteophyte unchanged. There is con tact on the traversing RIGHT L2 nerve root. 8. Mild subarticular recess and foraminal stenosis, greater on the RIGHT.
== END 2024-01-15 09:06 | disposition home or self-care (01) ==
LOC: RAD 09:05
PROVIDERS: PCP Family Medicine; Visit Provider Orthopaedic Surgery
DX: M43.16 Spondylolisthesis, lumbar region (principal); M51.360 Other intervertebral disc degeneration, lumbar region with discogenic back pain only; M99.63 Osseous and subluxation stenosis of intervertebral foramina of lumbar region; M51.26 Other intervertebral disc displacement, lumbar region
CPT/HCPCS: 72148

== ENCOUNTER → 2024-01-26 14:14 | Outpatient (BNVA) | payer MEDICARE, SELFPAY | PROVIDERS: PCP Family Medicine; Visit Provider Orthopaedic Surgery | DX: Z01.818 Encounter for other preprocedural examination (principal); Z09 Encounter for follow-up examination after completed treatment for conditions other than malignant neoplasm; M48.062 Spinal stenosis, lumbar region with neurogenic claudication | CPT/HCPCS: 36415; 80053; 81001; 85025; 87077; 87086; 87186; 99214 ==

== ENCOUNTER → 2024-01-29 06:26 | Day surgery (SDC) | payer MEDICARE, SELFPAY ==
[2024-01-29] VITALS (13 sets, daily range): BP systolic 97–159; BP diastolic 57–89; PULSE 73–87; RESP 17–18; TEMP 36.1–36.3; O2SAT 95–100; BMI 28.1
--- NOTE | 2024-01-29 | XR_ITS ---
WS: [id number] Exam: XR lumbar spine 2-3V* [id number] Date/Time of Exam: 01/29/2024 12:00 AM Reason For Exam: LORAINEMedina TREJO Single preop AP image of the lower lumbar spine is submitted. The image was obtained for localization purposes.
--- NOTE | 2024-01-29 06:24 | P.ANESASSM_ITS ---
Pre-Anesthetic Assessment Height/Weight: Height 5 ft 7 in Preop Diagnosis: Lumbar stenosis Operation Date: 01/29/24 08:00 Proposed Procedures p Lumbar Spine Decompression Lumbar Decompression(Not Applicable) - Elkin Carroll, DO Was Beta Estefanía taken within 24 hours: Yes Was Clonidine taken within 24 hours: N/A Social No alcohol and No tobacco Exam alert, oriented x 3, clear to auscultation bilaterally and regular rate & rhythm Airway Submandibular: within normal limits Cervical ROM: within normal limits Mallampati: Class II Dentition: false Anesthetic Plan ASA status: 2 Anesthesia: General Other: No prior issues with anesthesia NPO since yesterday History of hypertension on metoprolol and amlodipine, BB taken today Labs reviewed 01/26/2024 and acceptable for procedure Urine culture collected 01/26/2024 showing E. coli, antibiotics taken Plan for GETA Medications/Allergies Home Medications Medication Instructions Recorded Confirmed Last Taken Type polyethylene glycol 3350 17 17 gm PO DAILY PRN Constipation 10/12/19 01/28/24 01/28/24 History gram/dose oral powder (Miralax) acetaminophen 500 mg tablet 500 mg PO Q6H PRN Pain 12/27/23 01/29/24 2 Months Ago History ~11/29/23 metoprolol tartrate 25 mg tablet 25 mg PO BID 12/27/23 01/28/24 01/29/24 04:30 History celecoxib 50 mg capsule (Celebrex) 50 mg PO BID #60 caps 01/04/24 01/28/24 01/28/24 Rx amlodipine 2.5 mg tablet 2.5 mg PO DAILY #90 tabs 01/12/24 01/28/24 01/29/24 04:30 Rx methocarbamol 750 mg tablet 750 mg PO Q6H PRN spasms #20 tabs 01/14/24 01/28/24 01/28/24 Rx amoxicillin 500 mg tablet 500 mg PO BID 7 days #14 tabs 01/28/24 Unknown Rx hydrocodone 5 mg-acetaminophen 325 1 - 2 tab PO .Q4-6H #40 tabs 01/29/24 Unknown Rx mg tablet Allergies Allergy/AdvReac Type Severity Reaction Status Date / Time ciprofloxacin [From Cipro] Allergy ADR-Nausea Verified 01/29/24 07:06 simvastatin AdvReac Unknown muscle Verified 01/29/24 07:06 aches tamoxifen AdvReac Unknown superficial Verified 01/29/24 07:06 clot in legs [facility] Anesthesia Medical History 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 She also underwent radiation but no chemotherapy secondary to complications. She follows up with her oncologist in [place] who cleared her in 2019 to return to routine care. Essential hypertension SVT (supraventricular tachycardia) Surgical History History of lumpectomy of left breast History of bunionectomy of left great toe H/O: hysterectomy 02/09/2017--->patient underwent a vaginal hysterectomy, sacro-spinous ligament fixation, anterior and posterior repair, perineorrhaphy, right salpingectomy. Surgery was performed by Dr. Mahmood in [facility] in [place]. --He notes that there was a 6 cm tubal cyst on the right side and that is why the right tube was removed. The ovaries and left tube were within normal limits but could not be reached and were not removed. -Operative reports have been received and scanned into all scripts S/P dilatation and curettage 6 weeks after the of her first child for abnormal bleeding S/P hammer toe correction 2002-left foot S/P cataract surgery 2019-bilateral Family History Father , at age 67 CAD (coronary artery disease) Hyperlipidemia Sister Thyroid disease Uterine cancer diagnosed at age 74 Breast cancer diagnosed at age 67 Stroke Family/Other Breast cancer Niece, diagnosed at age 40 Brother Hyperlipidemia Mother , at 76 Breast cancer diagnosed at age 63 Cancer Other H/O breast surgery History of breast cancer Denies family history of Colon cancer Ovarian cancer Diabetes Clotting disorder Dementia Chronic kidney disease (CKD) Suicide Anesthesia complication Bleeding disorder Lung disease Hypertension Social History Smoking and tobacco/nicotine status: unknown if used tobacco/nicotine Alcohol intake: never Substance/Drug Use: never Caregiver/support person: Yes Household members: spouse Marital status: Number of children: 3 Current occupational status: retired Special janneth needs: No Agree to transfusion: Yes Data Anesthesia Cardiac Studies: No Data to Display
--- NOTE | 2024-01-29 06:51 | W.PM.OPSUD ---
Surgery/Procedure H&P Update DATE OF PROCEDURE: January 29, 2024 DATE H&P PERFORMED: 01/26/24 H&P UPDATE INFORMATION: I have reviewed H&P completed within last 30 days, I have examined patient prior to procedure and No changes to prior documentation PREOP DIAGNOSIS: Lumbar stenosis with neurogenic claudication PLANNED PROCEDURE: Operation Date: 01/29/24 08:00 Proposed Procedures p Lumbar Spine Decompression Lumbar Decompression(Not Applicable) - Elkin Carroll DO
[2024-01-29] MEDS: sodium chloride 0.9% 1,000 ML 30 ML IV (07:20)
[2024-01-29] MEDS: ceFAZolin 2,000 mg SDV 2000 MG IVP (07:56)
[2024-01-29] MEDS: lidocaine-epi 1% 20 mL INJ INJECTION (08:22)
--- NOTE | 2024-01-29 09:03 | PM.OP ---
Operative Report Date of procedure: January 29, 2024 Pre-op diagnosis: Lumbar stenosis with neurogenic claudication Post-op diagnosis: same Procedure done: L4-5 laminectomy and partial facetectomy Surgeon: Elkin Carroll DO Estimated blood loss (mL): 5 Complications: Dural tear repair with DuraGen patch and DuraSeal Procedure: L4-5 laminectomy and partial facetectomy Patient is brought to the operative suite. After undergoing anesthesia they are placed in the prone position. All areas of impingement are well padded. Patient is then prepped and draped in the normal sterile fashion. A skin incision is made over the L4-5 level. This is confirmed under c-arm guidance. A series of dilators are passed and the tubular retractor is docked on the L4 lamina. A bovie is used to clear the soft tissue off the lamina and the L 4/5 facet joint. A high speed darby is then used to perform the laminectomy and take down the medial aspect of the L 4/5 facet joint. A kerrison rongeure was then used to take down the remaining lamina and smooth the edge of the laminectomy up to the point where the ligamentum flavum attaches. Attention was then brought to the medial aspect of the facet joint. The remaining medial aspect of the superior and inferior aspect of the facet joint were taken down with the kerrison from the pedicle of L4 to L 5. The facet joint had significant hypertrophy. Attention was then brought to the Ligamentum Flavum. The ligament was taken down from the lamina of L4 to L5 and out medially to the remaining facet joint. The ligament was thick. The dura was then exposed. The ligament was partially scarred next to the L5 pedicle. When the ligaments pulled off and made a small tear in the dura. A DuraGen patch was placed along with DuraSeal. The L4 nerve was then traced with a curette out the L4/5 foramen and found to be adequately decompressed. The L5 nerve was traced with a curette around the L5 pedicle. The lateral recess was opened with a kerrison helping to further decompress the L5 nerve. Wound is then irrigated copiously with saline and surgiflo is used to stop any bleeding. The tubular retractor is removed and the wound is closed with vicryl and monocryl suture. Glue is then used to protect the wound. A sterile dressing is then placed. Patient was then placed in the supine position and transferred to the PACU in stable condition.
--- NOTE | 2024-01-29 09:51 | SUR.PHASEI ---
when asked, patient stated pain at a 7 to left hip. patient says this is an everyday pain she treats with ibuprofen. patient rated surgical area to lumbar at a 0.
[2024-01-29] MEDS: HYDROcodone-acetaminophen 5-325 mg Tablet 1 TAB PO (10:09)
== END | disposition home or self-care (01) ==
PROVIDERS: PCP Family Medicine; Visit Provider Orthopaedic Surgery
PROC: (CPT 63005; principal; 2024-01-29 08:00)
DX: M48.062 Spinal stenosis, lumbar region with neurogenic claudication (principal); I10 Essential (primary) hypertension; Z85.3 Personal history of malignant neoplasm of breast
CPT/HCPCS: 63047; 72100; 76000; J0690; J1100; J2405; J2704; J3010; J3490; J7030

== ENCOUNTER → 2024-02-10 11:54 | Outpatient (BNVA) | payer MEDICARE, SELFPAY | PROVIDERS: PCP Family Medicine; Visit Provider Family Medicine | DX: R30.0 Dysuria (principal); F41.9 Anxiety disorder, unspecified; G25.81 Restless legs syndrome; R45.0 Nervousness; E11.9 Type 2 diabetes mellitus without complications | CPT/HCPCS: 81000; 82728; 84443; 85025; 87086 ==

== ENCOUNTER → 2024-02-11 13:30 | Outpatient (BNVA) | payer MEDICARE, SELFPAY | PROVIDERS: PCP Family Medicine; Visit Provider Orthopaedic Surgery | DX: Z98.890 Other specified postprocedural states (principal) | CPT/HCPCS: 99024 ==

== ENCOUNTER → 2024-03-01 10:19 | Outpatient (BNVA) | payer MEDICARE, SELFPAY | PROVIDERS: PCP Family Medicine; Visit Provider Family Medicine | DX: R30.0 Dysuria (principal) | CPT/HCPCS: 81000 ==

== ENCOUNTER → 2024-03-10 13:19 | Outpatient (BNVA) | payer MEDICARE, SELFPAY | PROVIDERS: PCP Family Medicine; Visit Provider Orthopaedic Surgery | DX: Z98.890 Other specified postprocedural states (principal) | CPT/HCPCS: 99024 ==

== ENCOUNTER → 2024-04-19 08:39 | Outpatient (BNVA) | payer MEDICARE, SELFPAY | PROVIDERS: PCP Family Medicine; Visit Provider Podiatrist Foot & Ankle Surgery | DX: L84 Corns and callosities (principal); L60.3 Nail dystrophy | CPT/HCPCS: 99203 ==

== ENCOUNTER → 2024-04-21 08:32 | Outpatient (BNVA) | payer MEDICARE, SELFPAY | PROVIDERS: PCP Family Medicine; Visit Provider Orthopaedic Surgery | DX: M54.2 Cervicalgia (principal); Z98.890 Other specified postprocedural states | CPT/HCPCS: 72050; 99024 ==

== ENCOUNTER 2024-05-05 10:33 | Outpatient (RCR) | payer MEDICARE, SELFPAY | END 2024-05-23 23:59 | disposition home or self-care (01) | LOC: SPT 10:33 | PROVIDERS: Visit Provider Orthopaedic Surgery | DX: M54.2 Cervicalgia (principal); G89.29 Other chronic pain | CPT/HCPCS: 97110; 97140; 97161; G0283 ==

== ENCOUNTER → 2024-05-13 07:53 | Outpatient (BNVA) | payer MEDICARE, SELFPAY | PROVIDERS: PCP Family Medicine; Visit Provider Family Medicine | DX: R39.9 Unspecified symptoms and signs involving the genitourinary system (principal) | CPT/HCPCS: 81000 ==

== ENCOUNTER 2024-05-24 05:43 | Outpatient (RCR) | payer MEDICARE, SELFPAY | END 2024-06-22 23:59 | disposition home or self-care (01) | LOC: SPT 05:43 | PROVIDERS: PCP Family Medicine; Visit Provider Orthopaedic Surgery | DX: M54.2 Cervicalgia (principal); G89.29 Other chronic pain | CPT/HCPCS: 97110; 97140; G0283 ==

== ENCOUNTER → 2024-06-16 12:54 | Outpatient (BNVA) | payer MEDICARE, SELFPAY | PROVIDERS: PCP Family Medicine; Visit Provider Internal Medicine Cardiovascular Disease | DX: I10 Essential (primary) hypertension (principal); I47.10 Supraventricular tachycardia, unspecified; R60.0 Localized edema | CPT/HCPCS: 99214 ==

== ENCOUNTER 2024-06-23 06:30 | Outpatient (RCR) | payer MEDICARE, SELFPAY | END 2024-06-27 09:13 | disposition home or self-care (01) | LOC: SPT 06:30 | PROVIDERS: PCP Family Medicine; Visit Provider Orthopaedic Surgery | DX: M54.2 Cervicalgia (principal); G89.29 Other chronic pain | CPT/HCPCS: 97110; 97140; G0283 ==

== ENCOUNTER → 2024-07-14 07:46 | Outpatient (BNVA) | payer MEDICARE, SELFPAY | PROVIDERS: PCP Family Medicine; Visit Provider Orthopaedic Surgery | DX: M54.2 Cervicalgia (principal) | CPT/HCPCS: 99213 ==

== ENCOUNTER 2024-08-22 09:42 | Outpatient (CLI) | payer MEDICARE, SELFPAY ==
--- NOTE | 2024-08-22 10:00 | MM_ITS ---
WS: [id number] BILATERAL 3D TOMOSYNTHESIS DIGITAL DIAGNOSTIC MAMMOGRAPHY WITH CAD CLINICAL INFORMATION: breast cancer screening, history of breast cancer HISTORY: COMPARISON: 2023 TECHNIQUE: Bilateral CC, MLO, and ML views. FINDINGS: The breasts are composed of heterogeneous fibroglandular density, which can limit the detection of small underlying mass lesions. Lumpectomy changes LEFT breast with dystrophic calcification and parenchymal fibrosis. Incidental punctate and lucent centered calcifications bilaterally. Stable punctate ca lcifications about the resection cavity. No suspicious focal mass, asymmetry, calcifications, or architectural distortion. No evidence of malignancy. MM/MM diag tomosynthesis [id number] IMPRESSION: DENSITY: The breasts are heterogeneously dense, which may obscure small masses. BI-RADS: 2 - Benign FOLLOW UP: 1 Year Follow-up Recommend return to annual diagnostic mammography.
== END 2024-08-22 09:43 | disposition home or self-care (01) ==
LOC: RAD 09:44
PROVIDERS: PCP Family Medicine; Visit Provider Family Medicine
DX: R92.323 Mammographic fibroglandular density, bilateral breasts (principal); R92.1 Mammographic calcification found on diagnostic imaging of breast; Z98.890 Other specified postprocedural states
CPT/HCPCS: 77062; G0279

== ENCOUNTER → 2024-10-13 07:52 | Outpatient (BNVA) | payer MEDICARE, SELFPAY | PROVIDERS: PCP Family Medicine; Visit Provider Orthopaedic Surgery | DX: M54.2 Cervicalgia (principal) | CPT/HCPCS: 99213 ==

== ENCOUNTER 2024-10-26 13:46 | Outpatient (CLI) | payer MEDICARE, SELFPAY ==
--- NOTE | 2024-10-26 14:30 | MR_ITS ---
WS: [id number] MRI CERVICAL SPINE NONCONTRAST TECHNIQUE: Sagittal T1, T2 and STIR imaging. Axial T2, gradient, and fiesta imaging. CLINICAL INFORMATION: neck pain COMPARISON: None. FINDINGS: Straightening of the normal cervical lordosis. Moderate spondylitic changes. Cord signal appears normal. C2-C3: Advanced LEFT facet arthropathy. Moderate LEFT bony foraminal narrowing. C3-C4: RIGHT paracentral disc osteophyte complex with slight indentation on the cervical cord. Moderate central canal stenosis. Moderate to advanced facet arthropathy worse on the LEFT. Moderate to severe LEFT and mild RIGHT bony foraminal narrowing. C4-C5: Disc osteophyte complex with moderate central canal stenosis. Moderate facet arthropathy. Moderate LEFT and mild RIGHT bony foraminal narrowing. C5-C6: Disc osteophyte complex with mild central canal stenosis. Moderate LEFT bony foraminal narrowing. Moderate RIGHT facet arthropathy. C6-C7: LEFT paracentral disc osteophyte protrusion with indentation on the LEFT ventral cervical cord. Mild central canal stenosis. Uncovertebral joint hypertrophy. Mild to moderate LEFT and no significant RIGHT foraminal narrowing. C7-T1: Mild LEFT greater than RIGHT bony foraminal narrowing. Spinal canal is patent. Visualized brain stem structures: Normal. Prevertebral soft tissues: Normal. MR/MR cervical spin wo con* [id number] IMPRESSION: 1. Disc osteophyte protrusions with slight indentation of the cervical cord at C3-C4 C4-C5 C5-C6 and C6-C7 with central canal stenosis. This is moderate at C 3-C4 and C4-C5. 2. Multilevel bony foraminal narrowing worse at LEFT C2-3, LEFT C3-4, LEFT C4- 5, LEFT C5-6 and LEFT C6-7. 3. Advanced facet arthropathy LEFT C2-3 and LEFT C3-4. Moderate facet arthropa thy RIGHT C4-5
== END 2024-10-26 13:47 | disposition home or self-care (01) ==
LOC: RAD 13:47
PROVIDERS: PCP Family Medicine; Visit Provider Orthopaedic Surgery
DX: M50.322 Other cervical disc degeneration at C5-C6 level (principal); M47.892 Other spondylosis, cervical region; M48.02 Spinal stenosis, cervical region; M25.78 Osteophyte, vertebrae; M50.321 Other cervical disc degeneration at C4-C5 level; M48.061 Spinal stenosis, lumbar region without neurogenic claudication; M50.023 Cervical disc disorder at C6-C7 level with myelopathy; M50.123 Cervical disc disorder at C6-C7 level with radiculopathy; M99.31 Osseous stenosis of neural canal of cervical region; M99.21 Subluxation stenosis of neural canal of cervical region; M48.03 Spinal stenosis, cervicothoracic region
CPT/HCPCS: 72141

== ENCOUNTER → 2024-11-01 15:18 | Outpatient (BNVA) | payer MEDICARE, SELFPAY | PROVIDERS: PCP Family Medicine; Visit Provider Orthopaedic Surgery | DX: M54.2 Cervicalgia (principal); Z09 Encounter for follow-up examination after completed treatment for conditions other than malignant neoplasm | CPT/HCPCS: 99213 ==

== ENCOUNTER → 2024-11-04 11:09 | Outpatient (BNVA) | payer MEDICARE, SELFPAY | PROVIDERS: PCP Family Medicine; Visit Provider Internal Medicine Cardiovascular Disease | DX: I47.10 Supraventricular tachycardia, unspecified (principal); I10 Essential (primary) hypertension; M48.062 Spinal stenosis, lumbar region with neurogenic claudication; R09.89 Other specified symptoms and signs involving the circulatory and respiratory systems | CPT/HCPCS: 99214 ==

== ENCOUNTER → 2024-11-14 10:50 | Outpatient (BNVA) | payer MEDICARE, SELFPAY | PROVIDERS: PCP Family Medicine; Referring Provider Orthopaedic Surgery; Visit Provider Anesthesiology Pain Medicine | DX: M54.2 Cervicalgia (principal); M47.812 Spondylosis without myelopathy or radiculopathy, cervical region | CPT/HCPCS: 99204 ==

== ENCOUNTER 2024-11-16 12:24 | Outpatient (CLI) | payer MEDICARE, SELFPAY ==
--- NOTE | 2024-11-16 12:45 | USCV_ITS ---
Ayesha Arteaga Age: 84 Gender: F : 1940 Exam Date: 11/16/2024 13:07 Ordering Phys: Norma Cary MD ([email or web address]) Technologist: HAN Exam Location: [facility] – [place] Indication: stenosis Risk Factors: Previous Vascular Surgery: Right Brachial BP: / Left Brachial BP: / Right Left Velocity (cm/s) Spectral Plaque Velocity (cm/s) Spectral Plaque Syst/Diast Broadening Syst/Diast Broadening 68.50/ 10.20 Prox CCA 61.00 / 13.70 76.20/ 14.10 Mid CCA 50.40 / 10.40 46.10/ 6.50 Distal CCA 31.70 / 9.10 30.40/ 6.00 Prox ICA 29.20 / 9.50 25.70/ 7.50 Mid ICA 37.10 / 12.40 39.10/ 10.40 Distal ICA 42.70 / 13.30 49.20 ECA 67.60 0.80 ICA/CCA 1.30 Antegrade Vertebral Antegrade 25.80/ 4.40 cm/s 33.80/ 9.40 cm/s Tri Subclavian Tri 38.50 51.10 CONCLUSIONS Right ICA stenosis <50%. Mild atheromatous plaque right carotid bulb/ICA. Left ICA stenosis <50%. Mild atheromatous plaque left carotid bulb/ICA. Intimal thickening in the common carotid arteries and internal carotid arteries bilaterally. Normal antegrade Doppler flow noted in the right vertebral artery. Normal antegrade Doppler flow noted in the left vertebral artery. Mango Jenkins MD (Electronically Signed) Final Date: 16 November 2024 15:08 S
== END 2024-11-16 12:25 | disposition home or self-care (01) ==
LOC: RAD 12:28
PROVIDERS: PCP Family Medicine; Visit Provider Internal Medicine Cardiovascular Disease
DX: R09.89 Other specified symptoms and signs involving the circulatory and respiratory systems (principal); I65.23 Occlusion and stenosis of bilateral carotid arteries
CPT/HCPCS: 93880

== ENCOUNTER → 2024-11-22 12:31 | Outpatient (BNVA) | payer MEDICARE, SELFPAY | PROVIDERS: PCP Family Medicine; Visit Provider Anesthesiology Pain Medicine | DX: M47.812 Spondylosis without myelopathy or radiculopathy, cervical region (principal) | CPT/HCPCS: 64490; 64491; 64492; J3490; J9999 ==

== ENCOUNTER → 2024-11-28 13:34 | Outpatient (BNVA) | payer MEDICARE, SELFPAY | PROVIDERS: PCP Family Medicine; Visit Provider Anesthesiology Pain Medicine | DX: M47.812 Spondylosis without myelopathy or radiculopathy, cervical region (principal) | CPT/HCPCS: 99214 ==

== ENCOUNTER → 2024-12-28 10:26 | Outpatient (BNVA) | payer MEDICARE, SELFPAY | PROVIDERS: PCP Family Medicine; Visit Provider Anesthesiology Pain Medicine | DX: M47.812 Spondylosis without myelopathy or radiculopathy, cervical region (principal) | CPT/HCPCS: 64490; 64491; 64492; J3490; J9999 ==

== ENCOUNTER → 2025-01-09 13:12 | Outpatient (BNVA) | payer MEDICARE, SELFPAY | PROVIDERS: PCP Family Medicine; Visit Provider Anesthesiology Pain Medicine | DX: M47.812 Spondylosis without myelopathy or radiculopathy, cervical region (principal) | CPT/HCPCS: 99214 ==

== ENCOUNTER → 2025-02-01 12:56 | Outpatient (BNVA) | payer MEDICARE, SELFPAY | PROVIDERS: PCP Family Medicine; Visit Provider Anesthesiology Pain Medicine | DX: M47.812 Spondylosis without myelopathy or radiculopathy, cervical region (principal) | CPT/HCPCS: 64633; 64634; J1100; J9999 ==